=== PATIENT | female | born 1965 | race Two or more races ===

== ENCOUNTER 2025-07-06 12:37 | Emergency (ER) | payer OTHER ==
[~2025-07-06] VITALS: Ht 162.6 cm; Wt 79.4 kg
[2025-07-06 16:02] LABS: BASO % 0.8 % (0.1-1.2); EOS # 0.05 (0.04-0.54); EOS % 0.5 % (0.7-7.0); LYMPH # 1.56 (1.18-3.74); LYMPH % 15.3 % (19.3-53.1); MEAN PLATELET VOLUME 11.10 fl (9.4-12.4); MONO # 0.99 (0.24-0.82); MONO % 9.7 % (4.7-12.5); NEUT # 7.44 (1.56-6.13); NEUT % 73.2 % (34.0-71.1); RED CELL DISTRIBUTION WIDTH 12.6 % (11.6-14.4)
[2025-07-06] MEDS ORDERED: KETOROLAC TROMETHAMINE 30 MG VIAL IU STA (16:08)
[2025-07-06 16:41] LABS: ALT/SGPT 31 U/L (12-78); AST/SGOT 22 U/L (15-37); BILIRUBIN TOTAL 0.67 mg/dL (0.3-1.2); BUN CREA RATIO 17 (7.0-25.0); CREATININE SERUM 1.34 mg/dL (0.55-1.02); GFR 40.34; GLOBULINA 4.0 G/DL (2.4-3.5); GLUCOSE FASTING 104 mg/dL (65-100); OSMOLALITY SERUM 291 MOSM/KG (275-295)
[2025-07-06] MEDS ORDERED: KETOROLAC TROMETHAMINE 30 MG VIAL ONE (16:44)
[2025-07-06 16:45] LABS: CKMB < 1.0 NG/ML (0.5-3.6)
[2025-07-06] MEDS ORDERED: ASPIRIN 325 MG TABLET PO STA (17:26)
[2025-07-06] MEDS ORDERED: ENOXAPARIN SODIUM 80 MG/0.8 ML SYRINGE SUBCUTANEO STA (17:27)
[2025-07-06] MEDS ORDERED: NITROGLYCERIN IN 5 % DEXTROSE 50 MG/250 ML BOTTLE IV STA (17:28)
[2025-07-06] MEDS ORDERED: ATORVASTATIN CALCIUM 40 MG TABLET PO STA (17:28)
[2025-07-06] MEDS ORDERED: MORPHINE SULFATE 2 MG/ML SYRINGE IV STA (17:29)
[2025-07-06] MEDS ORDERED: 0.9 % SODIUM CHLORIDE 1,000 ML IV STA (17:30)
== END 2025-07-06 21:48 | disposition home or self-care (01) ==
LOC: ER 12:38
PROVIDERS: Physician Assistant Medical
DX: I10 Essential (primary) hypertension (principal)